=== PATIENT | male | born 1960 | race Hispanic/Latino ===

== ENCOUNTER → 2019-01-19 | Outpatient (CLI) | payer MEDICARE | END | disposition home or self-care (01) | LOC: RAH 01-06 08:58 | PROVIDERS: ATTEND Family Medicine | DX: K57.90 Diverticulosis of intestine, part unspecified, without perforation or abscess without bleeding (principal); I70.0 Atherosclerosis of aorta; N32.89 Other specified disorders of bladder; K66.8 Other specified disorders of peritoneum | CPT/HCPCS: 74176 ==